=== PATIENT | male | born 1940 | race Caucasian/White ===

== ENCOUNTER → 2018-12-16 11:17 | Outpatient (CLI) | payer MEDICARE, OTHER, SELFPAY ==
--- NOTE | 2018-12-16 | DI.CT.S_ITS ---
PROCEDURE: CT CERVICAL SPINE WO CON INDICATIONS: CERVICAL SPINE PAIN TECHNIQUE: Noncontrast 3 mm thick sections acquired from the skull base to the T4 level. Sagittal and coronal reformats were then constructed. In this patient, 3-D reformatted images were also performed. For radiation dose reduction, the following was used: automated exposure control, adjustment of mA and/or kV according to patient size. COMPARISON: [facility], , C-SPINE WITHOUT CONTRAST, 10/20/2015, 12:30. [facility], CR, CERVICAL SPINE 2 OR 3 VIEWS, 11/22/2014, 12:43. FINDINGS: Image quality: Excellent. Bones: No fractures or dislocations. Visualized superior ribs are intact. Postoperative changes are seen, with anterior fixation hardware at C5-C6, with a disc spacer seen. The fusion plate is well seated. The screws are well placed. No findings of hardware failure or hardware loosening are seen. Age-appropriate bony degenerative changes are seen. Soft tissues: Prevertebral soft tissues are normal in thickness. No paravertebral hematomas. No apical pneumothoraces. IMPRESSION: Unremarkable C5-C6 postoperative change. Age-appropriate cervical spine degenerative changes are seen by CT. Dictated by: Bruce Gallegos M.D. on 12/16/2018 at 11:24 Approved by: Bruce Gallegos M.D. on 12/16/2018 at 11:26
== END ==
PROVIDERS: PCP Family Medicine; Visit Provider Orthopaedic Surgery Orthopaedic Surgery of the Spine
DX: M54.2 Cervicalgia (principal); Z98.1 Arthrodesis status
CPT/HCPCS: 72125

== ENCOUNTER 2019-09-02 11:38 | Emergency (ER) | payer MEDICARE, OTHER, SELFPAY ==
[2019-09-02 11:47] VITALS: BP 153/88; PULSE 61; RESP 18; TEMP 36.4; O2SAT 98; BMI 27.4
--- NOTE | 2019-09-02 11:58 | DI.RAD.S_ITS ---
PROCEDURE: XR CHEST 1V INDICATIONS: chest pain TECHNIQUE: One view of the chest was acquired. COMPARISON: None. FINDINGS: Surgical changes and devices: Cervical spine ACDF. Lungs and pleura: Lungs are clear. No pleural effusions or pneumothorax. Mediastinum: Mediastinal contours appear normal. Heart size is normal. Bones and chest wall: No suspicious bony lesions. Overlying soft tissues appear unremarkable. IMPRESSION: No acute cardiopulmonary abnormality. Dictated by: Shan Page M.D. on 09/02/2019 at 12:27 Approved by: Shan Page M.D. on 09/02/2019 at 12:28
[2019-09-02 12:00] VITALS: BP 135/74; BP 137/74; PULSE 71; PULSE 84; RESP 16; RESP 18; O2SAT 97; O2SAT 99
--- NOTE | 2019-09-02 12:07 | ED.NEUROSD ---
HPI - Neuro Symptoms/Deficit General Chief Complaint: Neuro Symptoms/Deficit Stated Complaint: states terrific pain left side of head Time Seen by Provider: 09/02/19 12:06 Source: patient Mode of arrival: Ambulatory Limitations: no limitations History of Present Illness HPI Narrative: This is a 79-year-old male who comes to the emergency department with complaint of headache. Patient states really it is pain in the left taoist region. He had a biopsy about a year ago and just adjacent to that site he has localized pain. He states it has been there many many months, it has been getting worse. He describes it as sharp. It sort of pulse sites and will increase and decrease. He states it usually is always present. He states that she wheezing, clenching his jaw increases it. He states that he came today because his has been nagging at him and he saw the electronic plotting system operator today who told him that his eyes were fine, he has also seen his physician who did an x-ray of his jaw looking for dental infections and was negative. he denies any pain radiating to the ear. No fevers or chills. No new vision changes. He describes it as more superficial and not deep. No nausea, no vomiting. he states he has noticed he has a little bit easily off balance for the last several months. In that his very short-term memory is not good. He states his regular memory and long-term memory are fine. He does not take any thinners. He takes 300 mg gabapentin lightly for neuropathy particularly in his neck and legs. Any takes a cholesterol medication. He has had low back surgery as well as excisional biopsy on his left taoist and right neck. No tobacco, occasional alcohol weekly, no illicit. Dr. Cook is his primary care. On Anticoagulants: No Related Data Home Medications Medication Instructions Recorded Confirmed gabapentin 300 mg capsule 300 mg PO BEDTIME 09/02/19 09/02/19 rosuvastatin 2.5 mg PO BEDTIME 09/02/19 09/02/19 Allergies Allergy/AdvReac Type Severity Reaction Status Date / Time cetirizine [CETIRIZINE] Allergy Severe ELEVATED Unverified 09/02/19 11:15 LIVER ENZYMES Penicillins [PENICILLINS] Allergy Intermediate SWELLING Unverified 09/02/19 11:15 AT INFECTION SITE propranolol [PROPRANOLOL] Allergy Intermediate PALPITATION Unverified 09/02/19 11:15 S Review of Systems Review of Systems ROS Unobtainable: All systems reviewed & are unremarkable except as noted in HPI and below Patient History Medical History (Updated 09/02/19 @ 12:30 by Brenda Barajas DO) Dyslipidemia (Acute) Neuropathy (Acute) Surgical History (Updated 09/02/19 @ 12:28 by Brenda Barajas DO) History of back surgery (Acute) Social History Smoking Status: Never smoker Smoking Status: Never smoker alcohol intake frequency: a few times a week Alcohol type: beer Substance Use Type: does not use Exam Narrative Exam Narrative: GEN: well nourished, well appearing male, alert and oriented x 3, patient appears to be in mild distress. HEENT: Atraumatic, pupils are equal round reactive to light, extraocular movements are intact, nares are clear, TMs are clear with no fluid, nontender on temples. Throat is clear without any exudates, erythema, tonsillar enlargement or uvular deviation, no cervical lymphadenopathy HEART: Regular rate and rhythm without murmur, clicks, rubs. LUNGS:Lungs clear to auscultation, no wheezes, rales, crackles, chest moves symmetrically ABD:bowel sounds normal, soft, non-tender, no guarding, rebound, rigidity, no masses noted, no hepatosplenomegaly MSCL: Non-tender, no muscle atrophy, muscles strength 5/5 upper and lower extremities, full range of motion, normal gait NEURO:CN 2-12 intact, sensation normal SKIN: No erythema, no rash, no lesions. Patient does have a healed incision on his left taoist consistent with past history of biopsy. Initial Vital Signs Initial Vital Signs: Vital Signs Temperature 97.5 F L 09/02/19 11:47 Pulse Rate 61 09/02/19 11:47 Respiratory Rate 18 09/02/19 11:47 Blood Pressure 153/88 H 09/02/19 11:47 Pulse Oximetry 98 09/02/19 11:47 Course Orders Ordered: ED Orders 09/02/19 11:58 XR chest 1V Stat EKG-12 Lead Stat 09/02/19 12:03 Complete Blood Count AUTO DIFF Stat Comprehensive Metabolic Panel Stat Erythrocyte Sedimentation Rate Stat Partial Thromboplastin Time Stat Prothrombin Time INR Stat Troponin & CK Cardiac Panel Stat 09/02/19 12:08 C-Reactive Protein Quant Stat 09/02/19 12:24 CT head/brain wo con Stat Vital Signs Vital signs: Vital Signs - 8 hr 09/02/19 11:47 09/02/19 12:00 09/02/19 13:00 Temperature 97.5 F L Pulse Rate 61 84 73 Respiratory Rate 18 18 16 Blood Pressure 153/88 H Blood Pressure [Left Arm] 135/74 Blood Pressure [Right Arm] 137/74 133/77 Pulse Oximetry 98 99 95 09/02/19 13:58 Temperature Pulse Rate 69 Respiratory Rate 16 Blood Pressure 150/91 H Blood Pressure [Left Arm] Blood Pressure [Right Arm] Pulse Oximetry 99 MDM - Neuro Symptoms/Deficit Lab Data Attestation: I reviewed the patient's lab results. Result diagrams: 09/02/19 12:03 09/02/19 12:03 Labs: Lab Results 09/02/19 09/02/19 09/02/19 Range/Units 12:03 12:03 12:03 WBC 8.2 (4.5-11.0) X10^3/uL RBC 4.98 (4.5-5.9) X10^6/uL Hgb 16.1 (13.5-17.5) g/dL Hct 47.1 (41-53) % MCV 94.6 (80-100) fL MCH 32.4 (26-34) PG MCHC 34.2 (30-36) % RDW 13.6 (11.6-14.8) % Plt Count 217 (150-400) X10^3/uL Neut % (Auto) 65.5 (50-75) % Lymph % (Auto) 23.5 L (25-40) % [place] % (Auto) 9.0 (3-14) % Eos % (Auto) 1.6 L (2-4) % Baso % (Auto) 0.4 (0-2) % Neut # (Auto) 5400 (4683-8889) /uL Lymph # (Auto) 1900 (8721-4190) /uL [place] # (Auto) 700 (0-900) /uL Eos # (Auto) 100 (0-450) /uL Baso # (Auto) 0 (0-100) /uL ESR (0-15) MM/HR PT 11.3 (10.1-12.7) SECONDS INR 1.0 (0.9-1.3) APTT 31 (26.4-36.2) SECONDS Sodium 138 (137-145) mmol/L Potassium 4.1 (3.4-5.1) mmol/L Chloride 103 (98-107) mmol/L Carbon Dioxide 25 (22-32) mmol/L BUN 18 (9-20) mg/dL Creatinine 0.80 (0.66-1.25) mg/dL Estimated GFR > 60.0 (>60) mL/min BUN/Creatinine Ratio 22.5 H (6-22) Glucose 108 (80-110) mg/dL Calcium 9.3 (8.4-10.2) mg/dL Total Bilirubin 1.4 H (0.2-1.3) mg/dL AST 26 (17-59) IU/L ALT 18 (<50) IU/L Alkaline Phosphatase 68 (38-126) U/L Total Creatine Kinase 39 L (55-170) U/L CK-MB (CK-2) TNP CK-MB (CK-2) Rel Index TNP Troponin I < 0.012 (0.01-0.034) ng/mL C-Reactive Protein (<1.0) mg/dL Total Protein 7.5 (6.3-8.2) g/dL Albumin 4.5 (3.5-5.0) g/dL Globulin 3.0 (1.7-4.1) g/dL Albumin/Globulin Ratio 1.5 (1.0-2.8) 09/02/19 09/02/19 Range/Units 12:03 12:08 WBC (4.5-11.0) X10^3/uL RBC (4.5-5.9) X10^6/uL Hgb (13.5-17.5) g/dL Hct (41-53) % MCV (80-100) fL MCH (26-34) PG MCHC (30-36) % RDW (11.6-14.8) % Plt Count (150-400) X10^3/uL Neut % (Auto) (50-75) % Lymph % (Auto) (25-40) % [place] % (Auto) (3-14) % Eos % (Auto) (2-4) % Baso % (Auto) (0-2) % Neut # (Auto) (0635-7523) /uL Lymph # (Auto) (0068-8612) /uL [place] # (Auto) (0-900) /uL Eos # (Auto) (0-450) /uL Baso # (Auto) (0-100) /uL ESR 2 (0-15) MM/HR PT (10.1-12.7) SECONDS INR (0.9-1.3) APTT (26.4-36.2) SECONDS Sodium (137-145) mmol/L Potassium (3.4-5.1) mmol/L Chloride (98-107) mmol/L Carbon Dioxide (22-32) mmol/L BUN (9-20) mg/dL Creatinine (0.66-1.25) mg/dL Estimated GFR (>60) mL/min BUN/Creatinine Ratio (6-22) Glucose (80-110) mg/dL Calcium (8.4-10.2) mg/dL Total Bilirubin (0.2-1.3) mg/dL AST (17-59) IU/L ALT (<50) IU/L Alkaline Phosphatase (38-126) U/L Total Creatine Kinase (55-170) U/L CK-MB (CK-2) CK-MB (CK-2) Rel Index Troponin I (0.01-0.034) ng/mL C-Reactive Protein 0.5 (<1.0) mg/dL Total Protein (6.3-8.2) g/dL Albumin (3.5-5.0) g/dL Globulin (1.7-4.1) g/dL Albumin/Globulin Ratio (1.0-2.8) Imaging Data CT scan - head: Radiologist's impression: [address] [address] [address] Scan Report Signed Patient: Jose Fabian RMR#: [id number] : 1Acct:[id number] Age/Sex: 79 / MDate of Service: 09/02/19 Loc: ED Accession Number: [id number] Procedure: CT head/brain wo con Ordering Provider: Brenda Barajas D.O. PROCEDURE: CT HEAD/BRAIN WO CON INDICATIONS: left temporal pain close to prior biopsy 1 year ago TECHNIQUE: Noncontrast 4.5 mm thick angled axial sections acquired from the foramen magnum to the vertex, with coronal and sagittal reformats. For radiation dose reduction, the following was used: automated exposure control, adjustment of mA and/or kV according to patient size. COMPARISON: MRI brain 04/07/2012, head CT 12/11/2000. FINDINGS: Image quality: Excellent. CSF spaces: Basal cisterns are patent. No extra-axial fluid collections. Ventricles are normal in size and shape. Brain: No midline shift. No intracranial mass identified. No hemorrhage. Guardado-white matter interface is normal. Skull and face: Calvarium and visualized facial bones are intact, without suspicious lesions. Sinuses: Visualized sinuses and mastoids are clear. IMPRESSION: No acute intracranial abnormality. No abnormality in the region of the left temporal scalp. Dictated by: Shan Page M.D. on 09/02/2019 at 12:56 Approved by: Shan Page M.D. on 09/02/2019 at 13:03 ECG Data Attestation: I personally reviewed and interpreted this ECG as follows: Prior ECG tracings: available for review Interpretation: Sinus rhythm frequent PACs, rate of 78 P are 187 QRS 85 and QTC of 421. ST elevation or depression. Patient is a prior EKG from 12/12/2015 which appears similar except for the extra PACs. [facility] Narrative Medical decision making narrative: Discussed with patient I would suspect based on his symptomatology differential could include temporal arteritis, trigeminal neuralgia, he is secondary to his prior incision, mass or other cause with his history of cancer. Patient's head CT is negative lab work does not show any major changes, ESR and CRP are both negative. Patient's pain is quite localized and close to his prior incision site. Discussed with patient I would recommend trying increasing his gabapentin and seeing if this is helpful, discussed trying 3 times daily but patient states it made him very sleepy. We did discuss he could try 600 mg at bedtime instead of 3 times daily if he did not have too much hangover from the medication. He is interested in trying this. If he tolerates Tylenol he could as this for pain, and he states he tolerates naproxen well. we did discuss he had told the nursing staff sometimes the pain is bad enough that he thinks about hurting himself but he states that he does not really feel that way. He was offered something stronger for pain but he defers. Discharge Plan Departure Patient Disposition: Home Clinical Impression: Temporal pain Discharge Date/Time: 09/02/19 14:04 Activity Restrictions/Additional Instructions: Follow up with your physician for recheck. Call for an appointment. Continue your gabapentin you could increase to 300 mg, 3 times daily. This may improve your pain. It may also making more sleepy. You may take Tylenol up to a 1000 mg every 8 hours as needed for pain. Return to the ER for fevers greater 100.4 F, sudden vision changes, difficulty with speech, pain radiating to the ear, sudden severe headaches, new rashes persistent vomiting, new weakness, numbness or other new or concerning symptoms. Prescriptions: No Action gabapentin 300 mg capsule 300 mg PO BEDTIME RF: 0 rosuvastatin 5 mg tablet 2.5 mg PO BEDTIME RF: 0 Referrals: Pk Cook MD [Primary Care Provider] -
[2019-09-02 12:19] LABS: Add Manual Diff / Slide Review NO; Basophils Absolute Auto 0 /uL (0-100); Basophils Percent Auto 0.4 % (0-2); Eosinophils Absolute Auto 100 /uL (0-450); Eosinophils Percent Auto 1.6 % (2-4); Hematocrit 47.1 % (41-53); Hemoglobin 16.1 g/dL (13.5-17.5); Lymphocytes Absolute Auto 1900 /uL (1100-4500); Lymphocytes Percent Auto 23.5 % (25-40); Mean Corpuscular HGB Conc 34.2 % (30-36); Mean Corpuscular Hemoglobin 32.4 PG (26-34); Mean Corpuscular Volume 94.6 fL (80-100); Monocytes Absolute Auto 700 /uL (0-900); Neutrophils Absolute Auto 5400 /uL (1500-7000); Neutrophils Percent Auto 65.5 % (50-75); Platelet Count 217 X10^3/uL (150-400); Prothrombin Time 11.3 SECONDS (10.1-12.7); Red Blood Cell Count 4.98 X10^6/uL (4.5-5.9); Red Cell Distribution Width 13.6 % (11.6-14.8); White Blood Cell Count 8.2 X10^3/uL (4.5-11.0)
[2019-09-02 12:21] LABS: Alanine Aminotransferase 18 IU/L (<50); Albumin 4.5 g/dL (3.5-5.0); Albumin Globulin Ratio 1.5 (1.0-2.8); Alkaline Phosphatase 68 U/L (38-126); Aspartate Aminotransferase 26 IU/L (17-59); BUN Creatinine Ratio 22.5 (6-22); Bilirubin Total 1.4 mg/dL (0.2-1.3); Blood Urea Nitrogen 18 mg/dL (9-20); Calcium 9.3 mg/dL (8.4-10.2); Carbon Dioxide 25 mmol/L (22-32); Chloride 103 mmol/L (98-107); Creatine Kinase 39 U/L (55-170); Estimated Glomerular Filt Rate > 60.0 mL/min (>60); Glucose 108 mg/dL (80-110); HEMOLYSIS < 15 (0-50); PTT Partial Thromboplastin Tim 31 SECONDS (26.4-36.2); Potassium 4.1 mmol/L (3.4-5.1); Sodium 138 mmol/L (137-145); Total Protein 7.5 g/dL (6.3-8.2)
--- NOTE | 2019-09-02 12:24 | DI.CT.S_ITS ---
PROCEDURE: CT HEAD/BRAIN WO CON INDICATIONS: left temporal pain close to prior biopsy 1 year ago TECHNIQUE: Noncontrast 4.5 mm thick angled axial sections acquired from the foramen magnum to the vertex, with coronal and sagittal reformats. For radiation dose reduction, the following was used: automated exposure control, adjustment of mA and/or kV according to patient size. COMPARISON: MRI brain 04/07/2012, head CT 12/11/2000. FINDINGS: Image quality: Excellent. CSF spaces: Basal cisterns are patent. No extra-axial fluid collections. Ventricles are normal in size and shape. Brain: No midline shift. No intracranial mass identified. No hemorrhage. Guardado-white matter interface is normal. Skull and face: Calvarium and visualized facial bones are intact, without suspicious lesions. Sinuses: Visualized sinuses and mastoids are clear. IMPRESSION: No acute intracranial abnormality. No abnormality in the region of the left temporal scalp. Dictated by: Shan Page M.D. on 09/02/2019 at 12:56 Approved by: Shan Page M.D. on 09/02/2019 at 13:03
[2019-09-02 12:33] LABS: Troponin I < 0.012 ng/mL (0.01-0.034)
[2019-09-02 12:40] LABS: C-Reactive Protein Quant 0.5 mg/dL (<1.0)
[2019-09-02 12:45] LABS: Erythrocyte Sedimentation Rate 2 MM/HR (0-15)
[2019-09-02 13:00] VITALS: BP 133/77; PULSE 73; RESP 16; O2SAT 95
[2019-09-02 13:58] VITALS: BP 150/91; PULSE 69; RESP 16; O2SAT 99
--- NOTE | 2019-09-02 14:01 | PC.NURSE ---
Headache that is sharp and pulsating to temporal lobe area. States he has been having issues with balance and memory as well. At this time is A&Ox3 with a steady gait while walking in hallway.
== END 2019-09-02 14:04 | disposition home or self-care (01) ==
PROVIDERS: Emergency Provider Emergency Medicine; PCP Family Medicine
DX: R51 Headache (principal); G62.9 Polyneuropathy, unspecified; E78.5 Hyperlipidemia, unspecified; R03.0 Elevated blood-pressure reading, without diagnosis of hypertension
CPT/HCPCS: 36415; 70450; 71045; 80053; 82550; 84484; 85025; 85610; 85651; 85730; 86140; 93005; 93010; 99284; 99285

== ENCOUNTER → 2019-10-05 14:10 | Outpatient (CLI) | payer MEDICARE, OTHER, SELFPAY ==
--- NOTE | 2019-10-05 | DI.NM.S_ITS ---
PROCEDURE: NM LIMA PERF SPECT REST & STR Rest and exercise myocardial perfusion SPECT with gated imaging and ejection fraction RADIOPHARMACEUTICAL: 25.9 mCi Tc-99m sestamibi IV at rest and 25.3 mCi Tc-99m sestamibi IV at peak exercise. A two day-protocol was performed. INDICATIONS: Ventricular premature depolarization TECHNIQUE: Radiopharmaceutical was injected at peak stress test, and also at rest. SPECT images were obtained. SPECT myocardial perfusion images were displayed in short axis, horizontal long axis, and vertical long axis views. Gated images were reviewed using [employer] software. COMPARISON: None. CARDIAC STRESS: A standard Jordin treadmill exercise tolerance test was performed by the patient under the supervision of an attending staff. The patient exercised for 4 minutes and 29 seconds; functional aerobic impairment (ALETHEA) is +14%. Hemodynamic data: There is normal blood pressure and heart rate response to exercise stress. Patient achieved 118% of maximum predicted heart rate at peak exercise. Symptoms: Patient denied chest pain during exercise. EKG: No diagnostic EKG changes of ischemia; frequent PVCs during the entire study. FINDINGS: Raw data: There is good myocardial labeling by radiotracer. No significant motion artifacts. Olvh-kt-dxwqq ratio is 0.22 (normal is less than 0.38 for sestamibi tracer, and less than 0.50 for thallium tracer). Left ventricle function: Gated images demonstrate normal left ventricle wall thickening. No segmental wall motion abnormality. No transient ischemic dilation; TID is 0.89 (normal less than 1.3). The left ventricle resting end-diastolic volume is 171 mL. Left ventricle stress ejection fraction is 63%; normal values are above 45%. Myocardial perfusion: There is normal distribution of activity in the left and right ventricular myocardium. No fixed or reversible perfusion defects. IMPRESSION: Low risk, normal treadmill nuclear stress test 1) No perfusion evidence of ischemia or infarction. 2) Mildly increased left ventricular size (LVEDV 171cc) with normal wall motion and normal systolic function (EF posst stress 63%). 3) No ECG evidence of ischemia. Frequent PVCs during the entire study. 4) No angina during the study. 5) No prior nuclear stress test available for comparison. Dictated by: Shaheed Marsh MD on 10/12/2019 at 13:07 Approved by: Shaheed Marsh MD on 10/12/2019 at 13:10
--- NOTE | 2019-10-05 15:51 | PM.TREADMILL ---
Cardiac Stress Test Report Referral & Results Date Patient Seen: 10/05/19 Time Patient Seen: 15:51 Indication: Ventricular ectopy Rest ECG: SR with frequent PVCs, runs of atrial tachycardia Procedure Note: Patient walked for 4 minutes 29 seconds of standard Chepe Protocol. Test ended due to dyspnea. Impression: 1. STANDARD CHEPE PROTOCOL 4::29, 7.0 METS. 2. FAIR EXERCISE CAPACITY, ALETHEA +15%. 3. NORMAL HEMODYNAMIC RESPONSE TO EXERCISE. 4. SAEED, LIMITING FACTOR. NO CHEST PAIN. 5. NO ST SHIFTS. FREQENT PVCS, COUPLETS AND TRIPLETS. RUNS OF ATRIAL TACHYCARDIA NOTED. Please note: Actual ECG tracings can be found in the PACS system.
[2019-10-05 16:20] LABS: BUN Creatinine Ratio 28.6 (6-22); Blood Urea Nitrogen 20 mg/dL (9-20); Calcium 9.6 mg/dL (8.4-10.2); Carbon Dioxide 27 mmol/L (22-32); Chloride 100 mmol/L (98-107); Cholesterol 205 mg/dL (140-199); Estimated Glomerular Filt Rate > 60.0 mL/min (>60); Glucose 93 mg/dL (80-110); HDL Cholesterol 53 mg/dL (40-60); HEMOLYSIS 40 (0-50); LDL Cholesterol Calculated 107 mg/dL (<100); Magnesium 2.1 mg/dL (1.6-2.3); Potassium 4.4 mmol/L (3.4-5.1); Sodium 137 mmol/L (137-145); Triglycerides 226 mg/dL (35-150)
== END ==
PROVIDERS: Family Provider Family Medicine; PCP Family Medicine; Visit Provider Internal Medicine Cardiovascular Disease
DX: I49.3 Ventricular premature depolarization (principal); I47.1 Supraventricular tachycardia; R06.09 Other forms of dyspnea; E78.5 Hyperlipidemia, unspecified
CPT/HCPCS: 36415; 78452; 80048; 80061; 83735; 93017; A9502

== ENCOUNTER → 2019-10-14 06:43 | Outpatient (CLI) | payer MEDICARE, OTHER, SELFPAY ==
--- NOTE | 2019-10-14 | DI.ECHO.S_ITS ---
[facility] +---------+ [facility] +---------+ : : [address] [place] : : : : [id number] : : : : Phone: [phone]+ Echocardiogram Report + + :Name: CLARENCE RASMUSSEN Study Date: 10/14/2019 Height: 73 in : :[facility] Weight: 208 lb : : Gender: Male BSA: 2.2 m2 : :: 1940 Age: 79 yrs BP: 144/82 mmHg: :Reason For Study: Arrhythmia : :Ordering Physician: Rogerio Andres : :Salma Performed By: Severino Harrington : :Referring: ROGERIO MARSH : + + Interpretation Summary 1) Upper normal left ventricular size with normal thickness, and normal systolic function (EF 55-60%). 2) Normal right ventricular size and function. 3) There is mild aortic regurgitation. 4) Compared to the Echo done 02/06/2011, no significant change. Procedure: A two-dimensional transthoracic echocardiogram with color flow and Doppler was performed. The study quality was technically adequate. Prior echo performed on 02/06/11. The patient had occasional PVCs during the exam. Left Ventricle: There is normal left ventricular wall thickness. Left ventricular size is at the upper limits of normal. Left ventricular systolic function is normal. The ejection fraction is estimated to be 55-60%. There are no obvious focal wall motion abnormalities noted but poor endocardial definition reduces the sensitivity for the detection of such. Diastolic parameters suggest a relaxation abnormality of the left ventricle, consistent with probable normal filling pressures. Right Ventricle: The right ventricle is normal in size and function. Atria: The left atrium is moderately dilated. Right atrial size is normal. The interatrial septum is intact with no evidence for an atrial septal defect. Mitral Valve: The mitral valve is normal in structure and function. There is trace mitral regurgitation. Aortic Valve: The aortic valve is trileaflet. The aortic valve opens well. There is no aortic valve stenosis. There is mild aortic regurgitation. Tricuspid Valve: The tricuspid valve is normal in structure and function. There is trace tricuspid regurgitation. Pulmonary artery pressures cannot be estimated because of the lack of a measurable TR jet velocity. Pulmonic Valve: The pulmonic valve is normal in structure and function. There is trace pulmonic regurgitation. Great Vessels: The aortic root is borderline dilated. The ascending aorta is mildly enlarged. The pulmonary artery is normal size. The IVC is of normal diameter and collapses greater than 50% with a sniff. This suggests a low right atrial pressure of 3 mm Hg. Pericardium/ Pleura There is no pericardial effusion. There is no pleural effusion. MMode/2D Measurements & Calculations LVIDd: 5.6 cm LVOT diam: 2.4 cm LVIDs: 3.8 cm Ao root diam: 4.0 cm FS: 32.1 % Aortic Jxn: 3.6 cm EPSS: 0.85 cm asc Aorta Diam: 4.2 cm IVSd: 1.1 cm LVPWd: 1.0 cm LV owens. diameter/BSA (cm/m^2): 2.6 LV sys. diameter/BSA (cm/m^2): 1.7 LA A2 area: 24.4 cm2 RA long axis: 6.2 cm LA A4 area: 23.9 cm2 RA area: 18.3 cm2 LA length (vol): 5.6 cm RA vol: 45.9 ml LA vol: 88.5 ml RA : 21.0 ml/m2 LA vol index: 40.4 ml/m2 TAPSE: 1.8 cm Doppler Measurements & Calculations Ao V2 max: 111.0 cm/sec LVOT Max Antwan: 105.3 cm/sec Ao V2 mean: 78.4 cm/sec LV V1 max P.4 mmHg Ao max P.9 mmHg LV V1 VTI: 20.5 cm Ao mean P.7 mmHg LEONARDA(I,D): 4.7 cm2 Ao V2 VTI: 19.6 cm LEONARDA(V,D): 4.3 cm2 sev ratio: 1.0 LEONARDA indexed to BSA (cm^2/m^2): 2.2 AI P1/2t: 431.6 msec AI dec slope: 259.3 cm/sec2 MV E max antwan: 33.5 cm/sec PA V2 max: 67.0 cm/sec MV A max antwan: 59.9 cm/sec PA V2 mean: 48.9 cm/sec MV E/A: 0.56 PA mean P.1 mmHg Med Peak E' Antwan: 9.0 cm/sec PA Accel Time: 0.08 sec E/E' med: 3.7 Lat Peak E' Antwan: 10.0 cm/sec E/E' lat: 3.4 E/e' average: 3.5 MV dec time: 0.18 sec SV(LVOT): 92.4 ml Reading Physician:09:34 AM
== END ==
PROVIDERS: Family Provider Family Medicine; PCP Family Medicine; Visit Provider Internal Medicine Cardiovascular Disease
DX: I35.1 Nonrheumatic aortic (valve) insufficiency (principal); I49.3 Ventricular premature depolarization; I77.89 Other specified disorders of arteries and arterioles
CPT/HCPCS: 93306

== ENCOUNTER → 2020-04-14 13:13 | Outpatient (CLI) | payer MEDICARE, OTHER, SELFPAY | PROVIDERS: Family Provider Family Medicine; PCP Family Medicine; Visit Provider Specialist | DX: N30.00 Acute cystitis without hematuria (principal); N52.31 Erectile dysfunction following radical prostatectomy | CPT/HCPCS: 51798; 81002; 87077; 87086; 87186; 99213 ==

== ENCOUNTER 2020-06-21 10:30 | Emergency (ER) | payer MEDICARE, OTHER, SELFPAY ==
[2020-06-21] VITALS (8 sets, daily range): BP systolic 131–174; BP diastolic 75–101; PULSE 73–97; RESP 15–18; TEMP 36.7; O2SAT 95–100; BMI 26.9
--- NOTE | 2020-06-21 10:44 | DI.CT.S_ITS ---
PROCEDURE: CT HEAD/BRAIN WO CON INDICATIONS: hit head , dizzy, no thinners. TECHNIQUE: Noncontrast 4.5 mm thick angled axial sections acquired from the foramen magnum to the vertex, with coronal and sagittal reformats. For radiation dose reduction, the following was used: automated exposure control, adjustment of mA and/or kV according to patient size. COMPARISON: [facility], CT, CT HEAD/BRAIN WO CON, 09/02/2019, 12:38. FINDINGS: Image quality: Excellent. CSF spaces: Basal cisterns are patent. No extra-axial fluid collections. There is mild cerebral volume loss, with resultant ventricular and sulcal prominence. Brain: No intracranial hemorrhage, mass, or mass effect. The mcallister-white matter junction appears preserved. Skull and face: Calvarium and visualized facial bones appear intact, without suspicious lesions. Sinuses: Visualized sinuses and mastoids are clear. IMPRESSION: 1. No acute intracranial abnormality. 2. Mild cerebral volume loss. Dictated by: Ponce Rojas M.D. on 06/21/2020 at 11:08 Approved by: Ponce Rojas M.D. on 06/21/2020 at 11:10
--- NOTE | 2020-06-21 10:50 | ED.HEATRA ---
HPI - Head Injury General Chief complaint: Head Injury Stated complaint: fell last ,hit head Time Seen by Provider: 06/21/20 10:50 Source: patient Mode of arrival: Ambulatory Limitations: no limitations History of Present Illness HPI Narrative: The patient was at the [facility] 5 days ago, he was sitting on a bench but fell over backwards striking his head on the ground. There is no LOC. He is able to sit up continue his day. The following day he seemed okay, but 2 days from the injury developed dizziness. He still has dizziness, but no visual changes and no confusion. He has a prior history of cervical fusion. He does have neck pain. He has no peripheral numbness or weakness. He has no confusion. He has no visual changes. He is ambulatory without assistance. He is not anticoagulated. Related Data Home Medications Medication Instructions Recorded Confirmed gabapentin 300 mg capsule 300 mg PO BEDTIME 09/02/19 04/14/20 cinnamon bark 500 mg capsule 500 mg PO DAILY 04/13/20 04/13/20 clonazepam 0.5 mg tablet 0.25 mg PO BEDTIME 04/13/20 04/13/20 Previous Rx's Medication Instructions Recorded ciprofloxacin HCl 500 mg tablet 500 mg PO Q12H #14 tab 04/18/20 meclizine 25 mg PO QID PRN #60 tab 06/21/20 Allergies Allergy/AdvReac Type Severity Reaction Status Date / Time Penicillins [PENICILLINS] Allergy Intermediate SWELLING Unverified 04/14/20 13:04 AT INFECTION SITE cetirizine [CETIRIZINE] AdvReac Severe ELEVATED Unverified 06/21/20 11:27 LIVER ENZYMES propranolol [PROPRANOLOL] AdvReac Intermediate PALPITATION Unverified 06/21/20 11:27 S Review of Systems Constitutional Constitutional: Denies chills, Denies fever(s), Reports headache(s) and Denies weakness Eyes Eyes: Denies change in vision ENT Ears, Nose, Mouth, and Throat: Reports dizziness, Reports headache(s), Denies neck pain and Denies tinnitus Cardiovascular Cardiovascular: Denies chest pain, Denies irregular heart rhythm, Denies lightheadedness, Denies dyspnea and Denies orthopnea Respiratory Respiratory: Denies cough, Denies dyspnea and Denies wheezing Gastrointestinal Gastrointestinal: Denies abdominal pain, Denies change in bowel habits, Denies diarrhea, Denies nausea and Denies vomiting Musculoskeletal Musculoskeletal: Denies back pain, Denies neck pain and Denies numbness Integumentary/Breasts Skin/Breast: Denies pruritus, Denies erythema and Denies rash Neurologic Neurologic: Reports dizziness, Reports headache(s), Denies numbness and Denies weakness Allergic/Immunologic Allergic/Immunologic: Denies wheezing Patient History Medical History Adenocarcinoma (Acute) Anxiety (Acute) Depression (Acute) Dyslipidemia (Acute) Erectile dysfunction (Acute) Erectile dysfunction after radical prostatectomy (Acute) Hyperhidrosis (Acute) Hypertension (Acute) Insomnia (Acute) Neuropathy (Acute) Prostate cancer (Acute) Sinusitis (Acute) Surgical History History of back surgery (Acute) Social History Smoking Status: Never smoker Smoking Status: Never smoker alcohol intake frequency: a few times a week Alcohol type: beer Substance Use Type: does not use Exam Initial Vital Signs Initial Vital Signs: Vital Signs Temperature 98.1 F 06/21/20 10:33 Pulse Rate 97 H 06/21/20 10:33 Respiratory Rate 18 06/21/20 10:33 Blood Pressure 174/101 H 06/21/20 10:33 Pulse Oximetry 100 06/21/20 10:33 Const General: cooperative and well developed Nutritional Appearance: well nourished [facility] Head: normocephalic and atraumatic Ears: TM's normal bilaterally Face and sinus: normal facial exam Mouth: oral mucosae normal Throat: posterior oropharynx normal Eyes General: appearance normal, both eyes and all related structures Eyelids: eyelids normal Conjunctivae: conjunctivae normal Sclera: sclerae normal Pupils: PERRL EOM: EOM intact bilaterally Neck Neck: normal visual inspection, trachea midline, No midline deformity and No JVD Lymphatic: No lymphedema Chest Chest: normal inspection of the chest Resp Effort & Inspection: normal respiratory effort and able to speak in complete sentences Auscultation: clear to auscultation bilaterally, no rales, no rhonchi and no wheezes Cardio Rate: regular rate Rhythm: regular rhythm Heart Sounds: S1 normal, S2 normal, no click, no gallops, no murmurs and no rubs Pulses: normal peripheral pulses GI Inspection: non-distended Palpation: soft, no hepatosplenomegaly, No guarding, No pulsatile mass and No tender Auscultation: normal bowel sounds Back/Spine/Pelvis Back: No back tenderness Skin General: no rashes or lesions noted and No petechiae Neuro General: patient alert, patient oriented x3, gait normal and no focal motor deficits Speech: speech normal Extrem General: normal to inspection and full ROM Psych Mental Status: mental status grossly normal Course Course Course Narrative: The patient is given meclizine for the dizziness. Dizziness resolved with meclizine. His head CT is normal. He was discharged on meclizine q.6 hours as needed. He is advised follow-up his doctor if symptoms persist. Orders Ordered: ED Orders 06/21/20 10:44 CT head/brain wo con Stat 06/21/20 10:51 CT cervical spine wo con Stat Discontinued Medications Meclizine HCl (Antivert) 50 mg PO NOW ONE Stop: 06/21/20 11:24 Last Admin: 06/21/20 11:29 Dose: 50 mg Documented by: ANITA Vital Signs Vital signs: Vital Signs - 8 hr 06/21/20 12:00 06/21/20 12:30 Pulse Rate 78 73 Blood Pressure 131/78 139/79 Pulse Oximetry 96 97 MDM - Head Injury Imaging Data CT scan - head: Radiologist's Impression: No acute findings Discharge Plan Departure Patient Disposition: Home Clinical Impression: Concussion Qualifiers: Encounter type: initial encounter Loss of consciousness presence/duration: without LOC Qualified Code(s): S06.0X0A - Concussion without loss of consciousness, initial encounter Discharge Date/Time: 06/21/20 12:55 Instructions: Concussion Activity Restrictions/Additional Instructions: Meclizine every 6 hours as needed for dizziness or nausea. Your prescription has been for to [facility] in [place]. Rest, avoid significant exertion. If not improved within 2 weeks follow-up with your doctor. Return here if necessary. Prescriptions: New meclizine 25 mg tablet 25 mg PO QID PRN (Reason: dizziness) Qty: 60 RF: 0 No Action gabapentin 300 mg capsule 300 mg PO BEDTIME RF: 0 ciprofloxacin HCl 500 mg tablet 500 mg PO Q12H Qty: 14 RF: 0 clonazepam 0.5 mg tablet 0.25 mg PO BEDTIME RF: 0 cinnamon bark [Cinnamon] 500 mg capsule 500 mg PO DAILY RF: 0 Referrals: Pk Cook MD [Primary Care Provider] -
--- NOTE | 2020-06-21 10:51 | DI.CT.S_ITS ---
PROCEDURE: CT CERVICAL SPINE WO CON INDICATIONS: hit head , dizzy, no thinners. TECHNIQUE: Noncontrast 3 mm thick sections acquired from the skull base to the T4 level. Sagittal and coronal reformats were then constructed. For radiation dose reduction, the following was used: automated exposure control, adjustment of mA and/or kV according to patient size. COMPARISON: [facility], CT, CT CERVICAL SPINE WO CON, 12/16/2018, 11:25. FINDINGS: Image quality: There is mild metallic streak artifact from patient's surgical hardware Bones: No fractures or subluxation. There is straightening of the cervical lordosis. Postsurgical changes are redemonstrated status post ACDF at C5-C6. There is mild multilevel disc space narrowing demonstrated throughout the cervical spine. There is also mild to moderate facet arthropathy throughout the cervical spine most prominent inferiorly. Visualized superior ribs are intact. Soft tissues: Prevertebral soft tissues are normal in thickness. No paravertebral hematomas. No apical pneumothoraces. IMPRESSION: 1. No acute fracture or subluxation. 2. Postsurgical changes redemonstrated status post ACDF at C5-C6. 3. Multilevel degenerative changes redemonstrated throughout the cervical spine. Dictated by: Ponce Rojas M.D. on 06/21/2020 at 11:10 Approved by: Ponce Rojas M.D. on 06/21/2020 at 11:13
--- NOTE | 2020-06-21 11:26 | PC.NURSE ---
CSpine cleared by Dr Dunlap and collar removed. pt medicated with meclazine per NOV. NAD
[2020-06-21] MEDS: MECLIZINE HCL 12.5 MG TABLET 50 MG PO (11:29)
== END 2020-06-21 12:55 | disposition home or self-care (01) ==
PROVIDERS: Emergency Provider Emergency Medicine; Family Provider Family Medicine; PCP Family Medicine
DX: S06.0X0A Concussion without loss of consciousness, initial encounter (principal); W08.XXXA Fall from other furniture, initial encounter
CPT/HCPCS: 70450; 72125; 99284

== ENCOUNTER → 2021-06-19 13:43 | Outpatient (CLI) | payer MEDICARE, OTHER, SELFPAY ==
--- NOTE | 2021-06-19 13:45 | DI.CT.S_ITS ---
PROCEDURE: CT CERVICAL SPINE WO CON INDICATIONS: fall 10d ago, vertigo TECHNIQUE: Noncontrast 3 mm thick sections acquired from the skull base to the T4 level. Sagittal and coronal reformats were then constructed. For radiation dose reduction, the following was used: automated exposure control, adjustment of mA and/or kV according to patient size. COMPARISON: [facility], CT, CT CERVICAL SPINE WO CON, 06/21/2020, 10:48. FINDINGS: Image quality: Excellent. Bones: No fractures or dislocations. Visualized superior ribs are intact. C5-6 demonstrates ACDF. Anterior osteophytes at C4-5 and C6-7. Soft tissues: Prevertebral soft tissues are normal in thickness. No paravertebral hematomas. No apical pneumothoraces. IMPRESSION: 1. No acute traumatic abnormality of the cervical spine. 2. C5-6 ACDF with disc disease of the adjacent disc spaces. Dictated by: Bill Calvo M.D. on 06/19/2021 at 14:10 Approved by: Bill Calvo M.D. on 06/19/2021 at 14:12
--- NOTE | 2021-06-19 13:45 | DI.CT.S_ITS ---
PROCEDURE: CT HEAD/BRAIN WO CON INDICATIONS: fall 10d ago, vertigo TECHNIQUE: Noncontrast 4.5 mm thick angled axial sections acquired from the foramen magnum to the vertex, with coronal and sagittal reformats. For radiation dose reduction, the following was used: automated exposure control, adjustment of mA and/or kV according to patient size. COMPARISON: [facility], CT, CT HEAD/BRAIN WO CON, 06/21/2020, 10:48. FINDINGS: Image quality: Excellent. CSF spaces: Basal cisterns are patent. No extra-axial fluid collections. The ventricles are symmetric in size and shape. Brain: No intracranial bleeds or masses. There is mild cerebral volume loss for age. There is mild periventricular and deep white matter chronic small vessel ischemic changes. There is intracranial internal carotid artery atherosclerosis. Skull and face: Calvarium and visualized facial bones appear intact, without suspicious lesions. Sinuses: Visualized sinuses and mastoids are clear. IMPRESSION: No acute intracranial abnormality. Dictated by: Bill Calvo M.D. on 06/19/2021 at 14:09 Approved by: Bill Calvo M.D. on 06/19/2021 at 14:10
== END ==
PROVIDERS: Family Provider Family Medicine; PCP Internal Medicine; Referring Provider Physician Assistant; Visit Provider Physician Assistant
DX: R42 Dizziness and giddiness (principal); T14.90XA Injury, unspecified, initial encounter; W19.XXXA Unspecified fall, initial encounter; Z98.1 Arthrodesis status
CPT/HCPCS: 70450; 72125

== ENCOUNTER 2022-06-25 13:05 | Emergency (ER) | payer MEDICARE, OTHER, SELFPAY ==
[2022-06-25 13:14] VITALS: BP 169/86; PULSE 91; RESP 18; TEMP 37.1; O2SAT 99
--- NOTE | 2022-06-25 13:22 | DI.RAD.S_ITS ---
PROCEDURE: XR CHEST 1V INDICATIONS: Possible stroke TECHNIQUE: One view of the chest was acquired. COMPARISON: [facility], CT, CT HEAD/BRAIN WO CON, 06/25/2022, 13:30. [facility], CR, XR CHEST 1V, 09/02/2019, 12:02. FINDINGS: Surgical changes and devices: Cervical spine fixation hardware is seen. Lungs and pleura: Lungs are clear. No pleural effusions or pneumothorax. Mediastinum: The cardiac contours are within normal limits. The aorta demonstrates calcification and tortuosity. Bones and chest wall: Age-appropriate bony degenerative changes are seen. No suspicious bony lesions. Overlying soft tissues appear unremarkable. IMPRESSION: Plain film study within normal limits for age, with note made postoperative and degenerative change. Dictated by: Bruce Gallegos M.D. on 06/25/2022 at 12:59 Approved by: Bruce Gallegos M.D. on 06/25/2022 at 12:59
--- NOTE | 2022-06-25 13:23 | DI.CT.S_ITS ---
PROCEDURE: CT HEAD/BRAIN WO CON INDICATIONS: stroke symptoms TECHNIQUE: Noncontrast 4.5 mm thick angled axial sections acquired from the foramen magnum to the vertex, with coronal and sagittal reformats. For radiation dose reduction, the following was used: automated exposure control, adjustment of mA and/or kV according to patient size. COMPARISON: [facility], CT, CT HEAD/BRAIN WO CON, 06/19/2021, 13:57. FINDINGS: Image quality: Excellent. CSF spaces: Basal cisterns are patent. No extra-axial fluid collections. The ventricles are symmetric in size and shape. Brain: No intracranial bleeds or masses. There is cerebral volume loss for age, with resultant ventricular and sulcal prominence. There are periventricular and deep white matter chronic small vessel ischemic changes. There is intracranial internal carotid artery atherosclerosis. Skull and face: Calvarium and visualized facial bones appear intact, without suspicious lesions. Sinuses: Visualized sinuses and mastoids are clear. IMPRESSION: No acute intracranial finding. Dictated by: Alexis Ghosh M.D. on 06/25/2022 at 13:41 Approved by: Alexis Ghosh M.D. on 06/25/2022 at 13:43
[2022-06-25 13:33] LABS: Add Manual Diff / Slide Review NO; Basophils Absolute Auto 100 /uL (0-100); Basophils Percent Auto 0.7 % (0-2); Eosinophils Absolute Auto 100 /uL (0-450); Eosinophils Percent Auto 1.4 % (2-4); Hematocrit 46.6 % (41-53); Hemoglobin 15.5 g/dL (13.5-17.5); Lymphocytes Absolute Auto 2400 /uL (1100-4500); Lymphocytes Percent Auto 28.6 % (25-40); Mean Corpuscular HGB Conc 33.3 % (30-36); Mean Corpuscular Hemoglobin 31.1 PG (26-34); Mean Corpuscular Volume 93.4 fL (80-100); Monocytes Absolute Auto 700 /uL (0-900); Monocytes Percent Auto 8.8 % (3-14); Neutrophils Absolute Auto 5000 /uL (1500-7000); Neutrophils Percent Auto 60.5 % (50-75); Platelet Count 263 X10^3/uL (150-400); Red Blood Cell Count 4.99 X10^6/uL (4.5-5.9); Red Cell Distribution Width 14.1 % (11.6-14.8); White Blood Cell Count 8.3 X10^3/uL (4.5-11.0)
[2022-06-25 13:34] LABS: Prothrombin Time 11.3 SECONDS (10.1-12.7)
[2022-06-25 13:36] LABS: PTT Partial Thromboplastin Tim 29 SECONDS (26-36)
[2022-06-25 13:40] LABS: Alanine Aminotransferase 27 IU/L (<50); Albumin 4.4 g/dL (3.5-5.0); Albumin Globulin Ratio 1.3 (1.0-2.8); Alkaline Phosphatase 64 U/L (38-126); Aspartate Aminotransferase 29 IU/L (17-59); BUN Creatinine Ratio 22.1 (6-22); Bilirubin Total 1.3 mg/dL (0.2-1.3); Blood Urea Nitrogen 17 mg/dL (9-20); Calcium 9.4 mg/dL (8.4-10.2); Carbon Dioxide 28 mmol/L (22-32); Chloride 100 mmol/L (98-107); Creatine Kinase 39 U/L (55-170); Estimated Glomerular Filt Rate > 60 mL/min (>60); Globulin 3.4 g/dL (1.7-4.1); Glucose 117 mg/dL (80-110); HEMOLYSIS < 15 (0-50); Sodium 136 mmol/L (137-145); Total Protein 7.8 g/dL (6.3-8.2)
[2022-06-25 13:52] LABS: Troponin I < 0.012 ng/mL (0.01-0.034)
--- NOTE | 2022-06-25 15:32 | DI.CT.S_ITS ---
PROCEDURE: CT CERVICAL SPINE WO CON INDICATIONS: Neck pain TECHNIQUE: Noncontrast 3 mm thick sections acquired from the skull base to the T4 level. Sagittal and coronal reformats were then constructed. For radiation dose reduction, the following was used: automated exposure control, adjustment of mA and/or kV according to patient size. COMPARISON: [facility], CT, CT CERVICAL SPINE WO CON, 06/19/2021, 13:57. FINDINGS: Image quality: Excellent. Bones: No fractures or dislocations. Visualized superior ribs are intact. Straightening of the normal cervical lordosis may be related to muscle spasm or positioning. Mild disc space narrowing and hypertrophic facet joints noted in the upper cervical spine C5-6 interbody fusion noted with good graft incorporation. Anterior plate and screw hardware in good position. Soft tissues: Prevertebral soft tissues are normal in thickness. No paravertebral hematomas. No apical pneumothoraces. IMPRESSION: No evidence of fracture or traumatic malalignment. C5-6 interbody fusion with anterior plate and screw instrumentation in good position. Mild multilevel degenerative disc disease and arthropathy Approved by: Tu Marin M.D. on 06/25/2022 at 14:58
[2022-06-25] MEDS: CYCLOBENZAPRINE 10 MG TABLET PO (15:34)
[2022-06-25] MEDS: MECLIZINE HCL 12.5 MG TABLET 25 MG PO (15:34)
[2022-06-25] MEDS: KETOROLAC 30 MG/ML VIAL 15 MG IV (15:35)
--- NOTE | 2022-06-25 16:03 | ED_ITS ---
HPI - General Adult <Rommel Bragg PA-C - Last Filed: 06/25/22 16:33> General Chief complaint: Dizziness Stated complaint: dizziness,wobbly, head/neck pain Time Seen by Provider: 06/25/22 13:30 Source: patient Mode of arrival: Ambulatory History of Present Illness HPI narrative: 82-year-old male with past medical history dyslipidemia, history of back surgery, spinal stenosis presents to the ED with worsening neck pain for several months. Patient is with his , who states that his neck pain has been going on for months and seems to be worsening. No recent trauma. However, patient has had several falls, the last of which was in January. Patient is followed by ortho Dr. Quezada. Patient also endorses dizziness which he describes as the room moving around him. Patient denies fever, chills, neck stiffness, chest pain, shortness of breath, nausea, vomiting, abdominal pain, dysuria, flank pain, syncope, lightheadedness. Patient denies numbness, tingling, weakness. Related Data Home Medications Medication Instructions Recorded Confirmed gabapentin 300 mg capsule 300 mg PO BEDTIME 09/02/19 06/25/22 Previous Rx's Medication Instructions Recorded meclizine 25 mg tablet 25 mg PO BID PRN dizziness 10 days 06/25/22 #20 tabs Allergies Allergy/AdvReac Type Severity Reaction Status Date / Time Penicillins [PENICILLINS] Allergy Intermediate SWELLING Unverified 06/25/22 13:21 AT INFECTION SITE cetirizine [CETIRIZINE] AdvReac Severe ELEVATED Unverified 06/25/22 13:21 LIVER ENZYMES propranolol [PROPRANOLOL] AdvReac Intermediate PALPITATION Unverified 06/25/22 13:21 S Review of Systems <Rommel Bragg PA-C - Last Filed: 06/25/22 16:33> Review of Systems ROS Unobtainable: All systems reviewed & are unremarkable except as noted in HPI and below Constitutional Constitutional: Denies chills, Denies fatigue, Denies fever(s), Denies frequent falls, Denies lethargy and Denies weakness Eyes Eyes: Denies change in vision, Denies eye discharge, Denies irritation and Denies loss of vision ENT Ears, Nose, Mouth, and Throat: Denies change in voice, Reports dizziness, Reports neck pain, Denies sore throat and Denies throat swelling Cardiovascular Cardiovascular: Denies chest pain, Denies irregular heart rhythm, Denies lightheadedness, Denies palpitations, Denies dyspnea, Denies dyspnea on exertion and Denies orthopnea Respiratory Respiratory: Denies cough, Denies dyspnea, Denies dyspnea on exertion and Denies wheezing Gastrointestinal Gastrointestinal: Denies abdominal pain, Denies change in bowel habits, Denies diarrhea, Denies nausea and Denies vomiting Genitourinary Genitourinary: Denies hematuria, Denies flank pain, Denies urinary incontinence and Denies urinary urgency Musculoskeletal Musculoskeletal: Denies back pain, Denies muscle weakness, Reports neck pain, Denies numbness and Denies tingling Integumentary/Breasts Skin/Breast: Denies pruritus, Denies erythema, Denies rash and Denies wounds Neurologic Neurologic: Denies behavioral changes, Denies confusion, Reports dizziness, Denies frequent falls, Denies loss of vision, Denies numbness, Denies tingling and Denies weakness Psychiatric Psychiatric: Denies anxiety, Denies behavioral changes, Denies confusion, Denies depression, Denies homicidal ideation and Denies suicidal ideation Endocrine Endocrine: Denies fatigue, Denies flushing and Denies palpitations Hematologic/Lymphatic Hematologic/Lymphatic: Denies easy bruising Allergic/Immunologic Allergic/Immunologic: Denies urticaria, Denies throat swelling and Denies wheezing Patient History <Rommel Bragg PA-C - Last Filed: 06/25/22 16:33> Medical History Adenocarcinoma Anxiety Depression Dyslipidemia Erectile dysfunction Erectile dysfunction after radical prostatectomy Hyperhidrosis Hypertension Insomnia Neuropathy Prostate cancer Sinusitis Surgical History History of back surgery Social History Smoking Status: Never smoker Smoking Status: Never smoker alcohol intake frequency: a few times a week Alcohol type: beer Substance Use Type: does not use Exam <Rommel Bragg PA-C - Last Filed: 06/25/22 16:33> Narrative Exam Narrative: Const General:?cooperative, healthy appearing and comfortable HENMT Head:?normal to inspection Ears:?hearing grossly normal bilaterally Nose:?external nose normal Face and sinus:?normal facial exam and sinuses nontender Mouth:?oral mucosae normal Throat:?posterior oropharynx normal Eyes General:?appearance normal, both eyes and all related structures Neck Neck:?normal visual inspection and no lymphadenopathy noted; no midline tenderness to palpation. Patient is neurovascularly intact. Resp Effort & Inspection:?normal respiratory effort Auscultation:?clear to auscultation bilaterally Cardio Rate:?regular rate Rhythm:?regular rhythm Neuro General:?patient alert, patient awake and patient oriented x3; gait normal; CN 1 through 12 bilaterally intact; negative [id number]; negative pronator drift Initial Vital Signs Initial Vital Signs: Vital Signs Temperature 98.7 F 06/25/22 13:14 Pulse Rate 91 H 06/25/22 13:14 Respiratory Rate 18 06/25/22 13:14 Blood Pressure 169/86 H 06/25/22 13:14 Pulse Oximetry 99 06/25/22 13:14 Oxygen Delivery Method 06/25/22 13:14 <Sandra Pardo MD - Last Filed: 06/25/22 17:44> Initial Vital Signs Initial Vital Signs: Vital Signs Temperature 98.7 F 06/25/22 13:14 Pulse Rate 91 H 06/25/22 13:14 Respiratory Rate 18 06/25/22 13:14 Blood Pressure 169/86 H 06/25/22 13:14 Pulse Oximetry 99 06/25/22 13:14 Oxygen Delivery Method 06/25/22 13:14 Course <Rommel Bragg PA-C - Last Filed: 06/25/22 16:33> Orders Ordered: ED Orders 06/25/22 13:15 Complete Blood Count AUTO DIFF Stat Comprehensive Metabolic Panel Stat Magnesium Stat Partial Thromboplastin Time Stat Prothrombin Time INR Stat Troponin & CK Cardiac Panel Stat 06/25/22 13:22 XR chest 1V Stat EKG-12 Lead Stat 06/25/22 13:23 CT head/brain wo con Stat 06/25/22 15:32 CT cervical spine wo con Stat Discontinued Medications Cyclobenzaprine HCl (Cyclobenzaprine 10 Mg Tablet) 10 mg PO NOW ONE Stop: 06/25/22 15:23 Last Admin: 06/25/22 15:34 Dose: 10 mg Documented By: Ketorolac Tromethamine (Ketorolac 30 Mg/Ml Vial) 15 mg IV NOW ONE Stop: 06/25/22 15:23 Last Admin: 06/25/22 15:35 Dose: 15 mg Documented By: HARITHA Meclizine HCl (Meclizine Hcl 12.5 Mg Tablet) 25 mg PO NOW ONE Stop: 06/25/22 15:23 Last Admin: 06/25/22 15:34 Dose: 25 mg Documented By: HARITHA Vital Signs Vital signs: Vital Signs - 8 hr 06/25/22 13:14 06/25/22 16:37 Temperature 98.7 F Pulse Rate 91 H 90 Respiratory Rate 18 Blood Pressure 169/86 H 161/80 H Pulse Oximetry 99 Oxygen Delivery Method Room Air <Sandra Pardo MD - Last Filed: 06/25/22 17:44> Orders Ordered: ED Orders 06/25/22 13:15 Complete Blood Count AUTO DIFF Stat Comprehensive Metabolic Panel Stat Magnesium Stat Partial Thromboplastin Time Stat Prothrombin Time INR Stat Troponin & CK Cardiac Panel Stat 06/25/22 13:22 XR chest 1V Stat EKG-12 Lead Stat 06/25/22 13:23 CT head/brain wo con Stat 06/25/22 15:32 CT cervical spine wo con Stat Discontinued Medications Cyclobenzaprine HCl (Cyclobenzaprine 10 Mg Tablet) 10 mg PO NOW ONE Stop: 06/25/22 15:23 Last Admin: 06/25/22 15:34 Dose: 10 mg Documented By: HARITHA Ketorolac Tromethamine (Ketorolac 30 Mg/Ml Vial) 15 mg IV NOW ONE Stop: 06/25/22 15:23 Last Admin: 06/25/22 15:35 Dose: 15 mg Documented By: HARITHA Meclizine HCl (Meclizine Hcl 12.5 Mg Tablet) 25 mg PO NOW ONE Stop: 06/25/22 15:23 Last Admin: 06/25/22 15:34 Dose: 25 mg Documented By: HARITHA Vital Signs Vital signs: Vital Signs - 8 hr 06/25/22 13:14 06/25/22 16:37 Temperature 98.7 F Pulse Rate 91 H 90 Respiratory Rate 18 Blood Pressure 169/86 H 161/80 H Pulse Oximetry 99 Oxygen Delivery Method Room Air Medical Decision Making <Rommel Bragg PA-C - Last Filed: 06/25/22 16:33> Lab Data Result diagrams: 06/25/22 13:15 06/25/22 13:15 Labs: Lab Results 06/25/22 06/25/22 06/25/22 Range/Units 13:15 13:15 13:15 WBC 8.3 (4.5-11.0) X10^3/uL RBC 4.99 (4.5-5.9) X10^6/uL Hgb 15.5 (13.5-17.5) g/dL Hct 46.6 (41-53) % MCV 93.4 (80-100) fL MCH 31.1 (26-34) PG MCHC 33.3 (30-36) % RDW 14.1 (11.6-14.8) % Plt Count 263 (150-400) X10^3/uL Neut % (Auto) 60.5 (50-75) % Lymph % (Auto) 28.6 (25-40) % [place] % (Auto) 8.8 (3-14) % Eos % (Auto) 1.4 L (2-4) % Baso % (Auto) 0.7 (0-2) % Neut # (Auto) 5000 (0587-3097) /uL Lymph # (Auto) 2400 (3788-7326) /uL [place] # (Auto) 700 (0-900) /uL Eos # (Auto) 100 (0-450) /uL Baso # (Auto) 100 (0-100) /uL PT 11.3 (10.1-12.7) SECONDS INR 1.0 (0.9-1.3) APTT 29 (26-36) SECONDS Sodium 136 L (137-145) mmol/L Potassium 4.0 (3.4-5.1) mmol/L Chloride 100 (98-107) mmol/L Carbon Dioxide 28 (22-32) mmol/L BUN 17 (9-20) mg/dL Creatinine 0.77 (0.66-1.25) mg/dL Estimated GFR > 60 (>60) mL/min BUN/Creatinine Ratio 22.1 H (6-22) Glucose 117 H (80-110) mg/dL Calcium 9.4 (8.4-10.2) mg/dL Magnesium 2.0 (1.6-2.3) mg/dL Total Bilirubin 1.3 (0.2-1.3) mg/dL AST 29 (17-59) IU/L ALT 27 (<50) IU/L Alkaline Phosphatase 64 (38-126) U/L Total Creatine Kinase 39 L (55-170) U/L CK-MB (CK-2) TNP CK-MB (CK-2) Rel Index TNP Troponin I < 0.012 (0.01-0.034) ng/mL Total Protein 7.8 (6.3-8.2) g/dL Albumin 4.4 (3.5-5.0) g/dL Globulin 3.4 (1.7-4.1) g/dL Albumin/Globulin Ratio 1.3 (1.0-2.8) Imaging Data CT - cervical spine: Radiologist's Impression: PROCEDURE:? CT CERVICAL SPINE WO CON ? INDICATIONS:? Neck pain ? TECHNIQUE:? Noncontrast 3 mm thick sections acquired from the skull base to the T4 level.? Sagittal and coronal reformats were then constructed.? For radiation dose reduction, the following was used:? automated exposure control, adjustment of mA and/or kV according to patient size.? ? COMPARISON:? [facility], CT, CT CERVICAL SPINE WO CON, 06/19/2021, 13:57. ? FINDINGS:? Image quality:? Excellent.? ? Bones:? No fractures or dislocations.? Visualized superior ribs are intact.? Straightening of the normal cervical lordosis may be related to muscle spasm or positioning.? Mild disc space narrowing and hypertrophic facet joints noted in the upper cervical spine ? C5-6 interbody fusion noted with good graft incorporation.? Anterior plate and screw hardware in good position. ? Soft tissues:? Prevertebral soft tissues are normal in thickness.? No paravertebral hematomas.? No apical pneumothoraces.? ? ? IMPRESSION:? ? No evidence of fracture or traumatic malalignment. ? C5-6 interbody fusion with anterior plate and screw instrumentation in good position. ? Mild multilevel degenerative disc disease and arthropathy ? Approved by: Tu Marin M.D. on 06/25/2022 at 14:58? CT scan - head: Radiologist's Impression: PROCEDURE:? CT HEAD/BRAIN WO CON ? INDICATIONS:? stroke symptoms ? TECHNIQUE:? Noncontrast 4.5 mm thick angled axial sections acquired from the foramen magnum to the vertex, with coronal and sagittal reformats.? For radiation dose reduction, the following was used:? automated exposure control, adjustment of mA and/or kV according to patient size.? ? COMPARISON:? [facility], CT, CT HEAD/BRAIN WO CON, 06/19/2021, 13:57. ? FINDINGS:? Image quality:? Excellent.? ? CSF spaces:? Basal cisterns are patent.? No extra-axial fluid collections.? The ventricles are symmetric in size and shape.? ? Brain:? No intracranial bleeds or masses.? There is cerebral volume loss for age, with resultant ventricular and sulcal prominence.? There are periventricular and deep white matter chronic small vessel ischemic changes.? There is intracranial internal carotid artery atherosclerosis.? ? Skull and face:? Calvarium and visualized facial bones appear intact, without suspicious lesions.? ? Sinuses:? Visualized sinuses and mastoids are clear.? ? IMPRESSION:? No acute intracranial finding. ? ? Dictated by: Alexis Ghosh M.D. on 06/25/2022 at 13:41 ? ? Approved by: Alexis Ghosh M.D. on 06/25/2022 at 13:43 ? Chest x-ray: Radiologist's Impression: PROCEDURE:? XR CHEST 1V ? INDICATIONS:? Possible stroke ? TECHNIQUE:? One view of the chest was acquired.? ? COMPARISON:? [facility], CT, CT HEAD/BRAIN WO CON, 06/25/2022, 13:30.? [facility], CR, XR CHEST 1V, 09/02/2019, 12:02. ? FINDINGS:? ? Surgical changes and devices:? Cervical spine fixation hardware is seen. ? Lungs and pleura:? Lungs are clear.? No pleural effusions or pneumothorax.? ? Mediastinum:? The cardiac contours are within normal limits. The aorta demonstrates calcification and tortuosity. ? Bones and chest wall:? Age-appropriate bony degenerative changes are seen.? No suspicious bony lesions.? Overlying soft tissues appear unremarkable.? IMPRESSION:? Plain film study within normal limits for age, with note made postoperative and degenerative change. ? ? Dictated by: Bruce Gallegos M.D. on 06/25/2022 at 12:59 ? ? Approved by: Bruce Gallegos M.D. on 06/25/2022 at 12:59 ? ECG Data Interpretation: Normal sinus rhythm, left axis deviation, no acute ST-T changes MDM Narrative Medical decision making narrative: 82-year-old male with past medical history dyslipidemia, history of back surgery, spinal stenosis presents to the ED with worsening neck pain for several months. Concern radiculopathy versus musculoskeletal sprain/sprain versus fracture/dislocation. Will obtain CT head, CT C-spine, labs. Workup was unremarkable. CT C spine and CT head without acute findings. Patient's symptoms likely due to a radiculopathy or musculoskeletal sprain/strain. Patient agrees to follow-up with Dr. Quezada his assessment specialist. Patient's dizziness improved with meclizine. Physical exam and history were reassuring, symptoms dizziness likely due to peripheral vertigo. Will discharge home with meclizine. Patient agrees to follow-up with his PCP and Dr. Garcia. ED return precautions discussed with patient. Patient verbalized understanding. <Sandra Pardo MD - Last Filed: 06/25/22 17:44> Lab Data Labs: Lab Results 06/25/22 06/25/22 06/25/22 Range/Units 13:15 13:15 13:15 WBC 8.3 (4.5-11.0) X10^3/uL RBC 4.99 (4.5-5.9) X10^6/uL Hgb 15.5 (13.5-17.5) g/dL Hct 46.6 (41-53) % MCV 93.4 (80-100) fL MCH 31.1 (26-34) PG MCHC 33.3 (30-36) % RDW 14.1 (11.6-14.8) % Plt Count 263 (150-400) X10^3/uL Neut % (Auto) 60.5 (50-75) % Lymph % (Auto) 28.6 (25-40) % [place] % (Auto) 8.8 (3-14) % Eos % (Auto) 1.4 L (2-4) % Baso % (Auto) 0.7 (0-2) % Neut # (Auto) 5000 (9965-8901) /uL Lymph # (Auto) 2400 (3729-6671) /uL [place] # (Auto) 700 (0-900) /uL Eos # (Auto) 100 (0-450) /uL Baso # (Auto) 100 (0-100) /uL PT 11.3 (10.1-12.7) SECONDS INR 1.0 (0.9-1.3) APTT 29 (26-36) SECONDS Sodium 136 L (137-145) mmol/L Potassium 4.0 (3.4-5.1) mmol/L Chloride 100 (98-107) mmol/L Carbon Dioxide 28 (22-32) mmol/L BUN 17 (9-20) mg/dL Creatinine 0.77 (0.66-1.25) mg/dL Estimated GFR > 60 (>60) mL/min BUN/Creatinine Ratio 22.1 H (6-22) Glucose 117 H (80-110) mg/dL Calcium 9.4 (8.4-10.2) mg/dL Magnesium 2.0 (1.6-2.3) mg/dL Total Bilirubin 1.3 (0.2-1.3) mg/dL AST 29 (17-59) IU/L ALT 27 (<50) IU/L Alkaline Phosphatase 64 (38-126) U/L Total Creatine Kinase 39 L (55-170) U/L CK-MB (CK-2) TNP CK-MB (CK-2) Rel Index TNP Troponin I < 0.012 (0.01-0.034) ng/mL Total Protein 7.8 (6.3-8.2) g/dL Albumin 4.4 (3.5-5.0) g/dL Globulin 3.4 (1.7-4.1) g/dL Albumin/Globulin Ratio 1.3 (1.0-2.8) Discharge Plan Departure Patient Disposition: Home Clinical Impression: Neck pain Instructions: DI for Neck Pain Activity Restrictions/Additional Instructions: You were evaluated today for neck pain. Your CT head and CT C-spine did not show any fractures or dislocations. Your labs and workup were normal. Your neck pain is likely due to disc issues or a musculoskeletal issue. Please follow-up with your PCP and your orthopedic doctor for further evaluation and workup. Please return to the ED if your symptoms worsen, you experience numbness, tingling, weakness. Prescriptions: New meclizine 25 mg tablet 25 mg PO BID PRN (Reason: dizziness) 10 Days Qty: 20 0RF No Action gabapentin 300 mg capsule 300 mg PO BEDTIME Referrals: Freddie Leyva MD [Primary Care Provider] - Visit Report Forms: Patient Portal/API <Sandra Pardo MD - Last Filed: 06/25/22 17:44> Cosign ED Attending Cosignature Attestation: I was immediately available in the department for consultation throughout this patient's visit. I agree with documentation as above. Sandra Pardo MD
[2022-06-25 16:37] VITALS: BP 161/80; PULSE 90
== END 2022-06-25 16:38 | disposition home or self-care (01) ==
PROVIDERS: Emergency Medicine; Emergency Provider Student in an Organized Health Care Education/Training Program; Family Provider Family Medicine; PCP Internal Medicine
DX: M54.2 Cervicalgia (principal); R42 Dizziness and giddiness
CPT/HCPCS: 36415; 70450; 71045; 72125; 80053; 82550; 83735; 84484; 85025; 85610; 85730; 93005; 96374; 99284; 99285; J1885

== ENCOUNTER → 2023-03-14 12:42 | Outpatient (CLI) | payer MEDICARE, OTHER, SELFPAY ==
--- NOTE | 2023-03-14 | DI.MRI.S_ITS ---
PROCEDURE: MR BRAIN (IAC) WWO CON INDICATIONS: Tinnitus, bilateral TECHNIQUE: Noncontrast sagittal T1 spin echo, axial FLAIR, axial gradient echo, axial diffusion and ADC through the brain. Axial thin-slice 3D CISS, coronal TruFISP, axial T1 spin echo with fat saturation through the internal auditory canals. After the administration of contrast, thin slice axial and coronal T1 spin echo with fat saturation through the internal auditory canals, and axial and coronal and sagittal T1 spin echo with fat saturation through the brain. COMPARISON: [facility], CT, CT HEAD/BRAIN WO CON, 06/25/2022, 13:30. [facility], CT, CT HEAD/BRAIN WO CON, 06/19/2021, 13:57. [facility], MR, STROKE PROTOCOL, 04/07/2012, 10:13. FINDINGS: Image quality: Excellent. Cerebellopontine angles: No cerebellopontine angle masses. Inner ear structures appear normally formed. No suspicious enhancement in the internal auditory canal or along the course of the 7th cranial nerve. CSF spaces: Ventricles are normal in size and shape. There is a nonenhancing extra-axial collection of CSF seen along the posterior left frontal lobe, which is attributed to a stable arachnoid cyst. Basal cisterns are patent. Brain: No intracranial bleeds or mass effects. Guard[place]-white matter interface is intact. No abnormal intracranial enhancement. Diffusion weighted images demonstrate no acute ischemic insults. Brainstem appears normal. Normal intravascular flow voids are present. Skull and face: Calvarial marrow signal is normal. Orbits appear normal. Sinuses: Sinuses and mastoids are clear. IMPRESSION: No masses or abnormal enhancement are seen within the cerebellopontine angle cisterns or within the internal auditory canals. Additional findings: Left posterior frontal arachnoid cyst, stable Dictated by: Bruce Gallegos M.D. on 03/14/2023 at 13:17 Approved by: Bruce Gallegos M.D. on 03/14/2023 at 13:21
== END ==
PROVIDERS: Family Provider Family Medicine; PCP Internal Medicine; Referring Provider Internal Medicine; Visit Provider Internal Medicine
DX: H93.13 Tinnitus, bilateral (principal); H83.2X1 Labyrinthine dysfunction, right ear; G93.0 Cerebral cysts
CPT/HCPCS: 70553